=== PATIENT | male | born 1985 | race Caucasian/White ===

== ENCOUNTER 2017-03-17 15:14 | Inpatient (IN) ==
[2017-03-17] MEDS ORDERED: Ondansetron 4 MG/2 ML VIAL ONE (16:04)
[2017-03-17] MEDS ORDERED: Naloxone 0.4 MG/ML INJ IVP PRN (16:57)
[2017-03-17] MEDS ORDERED: Acetaminophen 325 MG TABLET PO PRN (16:57)
--- NOTE | 2017-03-17 17:04 | Internal Med History&Physical ---
Date of Encounter: 03/17/17 Time of Encounter: 16:40 Assessment and Plan (1) Nausea and vomiting Current visit: Yes Status: Acute Could be related to underlying sepsis versus marijuana use versus gastritis. Continue supportive care with when necessary Zofran and start Reglan. IV PPI. Check CT abdomen/pelvis for acute abnormality. Keep nothing by mouth for now. IV hydration. Qualifiers: Vomiting type: unspecified Vomiting Intractability: intractable Qualified Code(s): R11.2 - Nausea with vomiting, unspecified (2) Sepsis Current visit: Yes Status: Acute Patient presented with leukocytosis with left shift, tachycardia and mild lactic acidosis on VBG. Unclear source of infection but likely has bacteremia from IV drug use. Follow-up blood cultures. Urinalysis is not suggestive of infection. Continue aggressive IV hydration along with broad-spectrum IV antibiotics-vancomycin and Rocephin. Will check 2-D echocardiogram if blood cultures are positive. Monitor vital signs closely, at risk for severe sepsis. Qualifiers: Sepsis type: sepsis due to unspecified organism Qualified Code(s): A41.9 - Sepsis, unspecified organism (3) IV drug abuse Current visit: Yes Status: Chronic Supportive care. Urine drug screen positive for benzodiazepines and marijuana. services advisor consult. (4) Hepatitis C Current visit: Yes Status: Chronic Hepatitis C antibody positive, treatment naive, patient is not aware of viral load; ALT noted to be mildly elevated; f/up liver enzymes; Qualifiers: Viral hepatitis chronicity: chronic Hepatic coma status: without hepatic coma Qualified Code(s): B18.2 - Chronic viral hepatitis C Internal Medicine - H&P: HPI Chief complaint: Nausea, vomiting Admitted From: Emergency Dept Plans for Post Hospital Care: Home History of present illness: Mr. Peralta is a 31 year old male with history of IV drug use, who remained clean for the last 13 months and relapsed last week, presents with complaints of persistent nausea and vomiting. Patient is accompanied by his mother at bedside, also provided history. Patient has had chronic issues with gastritis, nausea and vomiting, never had an endoscopy done. He reports a 7 day history of persistent nausea and vomiting, inability to keep anything down, associated with epigastric pain. He also reports at least 40 pound weight loss in the last 4-5 weeks along with malaise, generalized weakness, subjective fever and chills. He admits to using IV heroine about a week ago and he also used Xanax this morning for symptomatic relief, which was not prescribed to him. No previous history of bacteremia or endocarditis according to the patient but he did have a MRSA wound infection secondary to IV drug use. Past Med Surg Social Fam HX - Past Medical History Medical history: asthma, GERD Psychiatric history: no psych history - Past Surgical History Surgical History: no surgical history - Social History Smoking Status: Current every day smoker Packs per day: 1 Smokeless Tobacco Status: No Alcohol use: occasionally Drug use: marijuana, IV Drug Use, other Occupational status: employed Current living situation: Home, With Family Activity Level: Independent ambulation Recent Out of Country Travel Within the Last 8 Weeks: No Exposure or Possible Exposure to Illness During Travel: No - Family History Mother History Unknown: Yes Father Living Status: Still Living Hx Family Cancer: Yes Internal Medicine - H&P: Meds Omeprazole [PriLOSEC] 40 mg PO DAILY 03/17/17 [History] 3 Allergy/AdvReac Type Severity Reaction Status Date / Time No Known Allergies Allergy Verified 03/17/17 12:13 All Systems PM: A 10-system review of systems was performed and is negative for pertinent findings except as documented above in the HPI. - Constitutional Constitutional: chills, malaise, weakness - EENT Eyes: no change in vision, no discharge, no pain, no photophobia Ears: no ear discharge, no ear pain, no tinnitus Nose, mouth and throat: no dysphagia, no nasal discharge, no neck pain, no sore throat - Cardiovascular Cardiovascular ROS IM: no chest pain, no diaphoresis, no dyspnea, no lightheadedness, no palpitations, no syncope - Respiratory Respiratory: no cough, no dyspnea, no wheezing, no excessive phlegm production - Gastrointestinal Gastrointestinal: abdominal pain, nausea, vomiting, no diarrhea - Musculoskeletal Musculoskeletal ROS IM: muscle weakness, no numbness, no tingling - Integumentary Integumentary IM: no rash, no unusual bruising - Neurological Neurological ROS: no confusion, no convulsions, no focal weakness, no numbness, no tingling, no tremor(s) - Hematologic/Lymphatic Hematologic/Lymphatic: no easy bruising - Constitutional Vitals: Temp Pulse Resp BP Pulse Ox 97.7 F 84 18 144/88 99 03/17/17 16:03 03/17/17 16:03 03/17/17 16:03 03/17/17 16:03 03/17/17 16:03 General appearance: Present: mild distress, A&O X 3, answers questions appropriately Exam: multiple scars, likely from picking, on his face and extremities - Respiratory Respiratory exam: Present: CTAB. Absent: accessory muscle use, rales, rhonchi, wheezes - Cardiovascular Cardiovascular exam: Present: RRR, +S1, +S2. Absent: diastolic murmur, gallop, rubs, systolic murmur - GI/Abdominal GI/Abdominal exam: Present: normal bowel sounds, soft, no peritoneal signs. Absent: distended, tenderness - Extremities Exam Extremities exam: Present: full ROM, warm, radial pulses palpable and symmetrical. Absent: calf tenderness, cyanotic, pedal edema - Neurological Exam Neurological exam: Present: CN II-XII intact, oriented X3, no focal deficits. Absent: pronater drift, facial droop, speech deficit - Skin Skin exam: Present: dry, intact Internal Med - H&P Results - EKG Data -: EKG Interpreted by Myself EKG shows normal: sinus rhythm Rate: tachycardia
[2017-03-17] MEDS ORDERED: Chloraseptic Spray 177 ML BOTTLE MM PRN (17:27)
[2017-03-17] MEDS: Metoclopramide 10 MG/2 ML VIAL IVP PRN (17:37)
[2017-03-17] MEDS: 0.9 % Sodium Chloride 1,000 ML IVC SCH (17:37)
[2017-03-17] MEDS ORDERED: Vancomycin 1,000 MG in D5% in Water 250 ML IVPB SCH (18:00)
[2017-03-17] MEDS: Chlorhexidine Rinse 15 ML MOUTHWASH MM SCH (19:40)
[2017-03-17] MEDS: Ondansetron 4 MG/2 ML VIAL IVP PRN (19:40)
[2017-03-17] MEDS: Vancomycin 1,000 MG in D5% in Water 250 ML IVPB SCH (23:42)
[2017-03-17] MEDS: *HR* Heparin 5,000 UNIT/ML VIAL SQ SCH (23:42)
[2017-03-18] MEDS: Metoclopramide 10 MG/2 ML VIAL IVP PRN ×3 (04:24→17:13)
[2017-03-18] MEDS: 0.9 % Sodium Chloride 1,000 ML IVC SCH (04:24)
[2017-03-18 05:11] LABS: Basophils # 0.1 K/mcL (0.0-0.2); Basophils % 0.2 %; Eosinophils % 0.1 %; Hematocrit 42.8 % (37.5-50.1); Hemoglobin 14.4 g/dL (12.9-16.9); Lymphocytes # 2.1 K/mcL (0.6-4.6); Lymphocytes % 8.9 %; Mean Corpuscular HGB Conc 33.6 g/dL (31.6-35.5); Mean Corpuscular Hemoglobin 30.7 pg (28.0-33.3); Mean Corpuscular Volume 91.3 fL (83.0-100.0); Mean Platelet Volume 9.6 fL (9.4-12.4); Monocytes # 1.4 K/mcL (0.0-1.3); Monocytes % 6.1 %; Neutrophils # 19.4 K/mcL (1.6-8.9); Platelet Count 185 K/mcL (140-400); Red Blood Count 4.69 M/mcL (4.19-5.50); Red Cell Distribution Width 11.9 % (11.5-14.5); Segmented Neutrophils % 83.7 %
[2017-03-18 05:21] LABS: BUN/Creatinine Ratio 19 (6-26); Blood Urea Nitrogen 20 mg/dL (8-26); Calcium 9.1 mg/dL (8.6-10.8); Carbon Dioxide 29 mEq/L (19-29); Chloride 101 mEq/L (98-109); Glucose 84 mg/dL (70-99); Osmolality,Calculated 288 (280-300); Potassium 3.4 mEq/L (3.5-4.5); Sodium 138 mEq/L (136-145); eGFR For African Americans > 60 (> 60); eGFR For Non-African Americans > 60 (> 60)
[2017-03-18] MEDS: Vancomycin 1,000 MG in D5% in Water 250 ML IVPB SCH ×2 (06:00→18:24)
[2017-03-18] MEDS: *HR* Heparin 5,000 UNIT/ML VIAL SQ SCH ×3 (08:09→23:35)
[2017-03-18] MEDS: Pantoprazole 40 MG VIAL IVP SCH (08:21)
[2017-03-18] MEDS: Chlorhexidine Rinse 15 ML MOUTHWASH MM SCH ×2 (08:21→19:52)
[2017-03-18] MEDS: Ondansetron 4 MG/2 ML VIAL IVP PRN ×2 (08:25→14:27)
--- NOTE | 2017-03-18 13:21 | Internal Med Progress Note ---
Date of Encounter: 03/18/17 Time of Encounter: 11:20 - Assessment and plan (1) Sepsis Current Visit: Yes Status: Suspected Assessment and plan: Resolving. Leukocytosis is improved. Lactic acid is normal. Continue IV hydration. Awaiting culture results. Leukocytosis could also be related to stress response and dehydration due to intractable nausea and vomiting. If blood cultures remain negative, consider stopping antibiotics as no other source identified so far. Qualifiers: Sepsis type: sepsis due to unspecified organism Qualified Code(s): A41.9 - Sepsis, unspecified organism (2) IV drug abuse Current Visit: Yes Status: Chronic Assessment and plan: Counseled about cessation. Elevated blood culture results. No signs of withdrawal at this time (3) Hepatitis C Current Visit: Yes Status: Chronic Assessment and plan: Recommend follow-up with infectious disease for treatment Qualifiers: Viral hepatitis chronicity: chronic Hepatic coma status: without hepatic coma Qualified Code(s): B18.2 - Chronic viral hepatitis C (4) Nausea and vomiting Current Visit: Yes Status: Resolved Assessment and plan: Intractable nausea and vomiting has now resolved. Could be due to cannabinoid hyperemesis syndrome. Qualifiers: Vomiting type: cyclical vomiting Vomiting Intractability: intractable Qualified Code(s): G43.A1 - Cyclical vomiting, intractable - Subjective Interval history: Patient feels much better today. No longer having nausea and vomiting. No abdominal pain or chest pain. No headache or dysuria. No shortness of breath. Reports some sore throat and cough. No fever - Constitutional Vitals: Temp Pulse Resp BP Pulse Ox 98.2 F 66 16 109/79 97 03/18/17 11:17 03/18/17 11:30 03/18/17 11:17 03/18/17 11:17 03/18/17 11:17 General appearance: Present: cooperative, A&O X 3, no acute distress, answers questions appropriately - Eye Eye exam: Present: EOMI, PERRL, conjuntiva pink, sclera anicteric - Respiratory Respiratory exam: Present: CTAB. Absent: accessory muscle use, rales, rhonchi, wheezes - Cardiovascular Cardiovascular exam: Present: RRR, +S1, +S2. Absent: diastolic murmur, gallop, rubs, systolic murmur - GI/Abdominal GI/Abdominal exam: Present: normal bowel sounds, soft, no peritoneal signs. Absent: distended, tenderness - Extremities Exam Extremities exam: Present: warm, radial pulses palpable and symmetrical. Absent : calf tenderness, cyanotic, pedal edema - Neurological Exam Neurological exam: Present: alert, oriented X3, no focal deficits. Absent: facial droop, speech deficit - Skin Skin exam: Present: dry, intact Internal Medicine: Result - Labs CBC & Chem 7: 03/18/17 04:55 03/18/17 04:55 Labs: Short CBC 03/18/17 Range/Units 04:55 WBC 23.1 H (4.3-11.1) K/mcL Hgb 14.4 D (12.9-16.9) g/dL Hct 42.8 (37.5-50.1) % Plt Count 185 (140-400) K/mcL Neutrophils # 19.4 H (1.6-8.9) K/mcL BMP 03/18/17 04:55 Sodium 138 Potassium 3.4 L Chloride 101 Carbon Dioxide 29 BUN 20 Creatinine 1.07 Glucose 84 Calcium 9.1 D - Impressions Impressions Abdomen/Pelvis CT 03/17/17 17:53 IMPRESSION: 1. No acute abnormality. D/ / Eddie Barfield MD / Eddie Barfield MD Interpreting Provider: Eddie Barfield MD Consult Discharge Plan - Plan Referrals: NONE,PCP [Primary Care Provider] -
[2017-03-18] MEDS: Loratadine 10 MG TABLET PO SCH (15:22)
[2017-03-18] MEDS: *HR* LORazepam 2 MG/ML VIAL IVP PRN (20:13)
[2017-03-18] MEDS ORDERED: *HR* LORazepam 2 MG/ML VIAL ONE (20:23)
[2017-03-19 05:34] LABS: Basophils % 0.3 %; Eosinophils # 0.1 K/mcL (0.0-0.6); Eosinophils % 0.9 %; Hematocrit 40.3 % (37.5-50.1); Hemoglobin 13.3 g/dL (12.9-16.9); Immature Granulocytes % 0.7 % (0-4); Lymphocytes # 2.6 K/mcL (0.6-4.6); Lymphocytes % 21.9 %; Mean Corpuscular Hemoglobin 29.6 pg (28.0-33.3); Mean Corpuscular Volume 89.8 fL (83.0-100.0); Mean Platelet Volume 9.2 fL (9.4-12.4); Monocytes # 0.8 K/mcL (0.0-1.3); Monocytes % 6.8 %; Neutrophils # 8.2 K/mcL (1.6-8.9); Platelet Count 184 K/mcL (140-400); Red Blood Count 4.49 M/mcL (4.19-5.50); Red Cell Distribution Width 11.8 % (11.5-14.5); Segmented Neutrophils % 69.4 %
[2017-03-19] MEDS ORDERED: Vancomycin 1,250 MG in D5% in Water 250 ML IVPB SCH (06:00)
[2017-03-19] MEDS: *HR* LORazepam 2 MG/ML VIAL IVP PRN (06:02)
[2017-03-19] MEDS: *HR* Heparin 5,000 UNIT/ML VIAL SQ SCH (07:53)
[2017-03-19] MEDS: Chlorhexidine Rinse 15 ML MOUTHWASH MM SCH (07:56)
[2017-03-19] MEDS: Loratadine 10 MG TABLET PO SCH (07:56)
[2017-03-19] MEDS: Pantoprazole 40 MG VIAL IVP SCH (07:56)
--- NOTE | 2017-03-19 12:43 | Electrocardiograph Report ---
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
[2017-03-19 15:06] VITALS: BP 124/80
--- NOTE | 2017-03-19 16:54 | Discharge Summary ---
Date of Encounter: 03/19/17 Time of Encounter: 16:49 - Discharge Diagnosis (1) Leukocytosis Priority: Primary Status: Acute Qualifiers: Leukocytosis type: bandemia Qualified Code(s): D72.825 - Bandemia (2) IV drug abuse Priority: Secondary Status: Chronic (3) Hepatitis C Priority: Secondary Status: Chronic Qualifiers: Viral hepatitis chronicity: chronic Hepatic coma status: without hepatic coma Qualified Code(s): B18.2 - Chronic viral hepatitis C (4) Nausea and vomiting Priority: Secondary Status: Resolved Qualifiers: Vomiting type: cyclical vomiting Vomiting Intractability: intractable Qualified Code(s): G43.A1 - Cyclical vomiting, intractable - Discharge Medications Prescriptions: Ondansetron HCl [Zofran] 4 mg PO TID PRN #10 tablet PRN Reason: Nausea Home Medications: Omeprazole [PriLOSEC] 40 mg PO DAILY 03/17/17 [History] Loratadine [Claritin] 10 mg PO DAILY tab 03/19/17 [Rx] Ondansetron HCl [Zofran] 4 mg PO TID PRN #10 tablet 03/19/17 [Rx] Allergies/Adverse Reactions: 3 Allergy/AdvReac Type Severity Reaction Status Date / Time No Known Allergies Allergy Verified 03/17/17 12:13 Procedures/tests Complete & Pending: Procedures Performed prior 72 hours Category Date Time Status CT abd pelvis w iv no oral [CT] Routine Cat Scan 03/17/17 17:53 Completed ECG 12 lead ECG [ECG] Routine Y 03/19/17 05:59 Completed Date of admission: 03/17/17 15:52 Primary care physician: PCP NONE Consults: 03/17/17 17:00 Consult to Veneer Sheet Repairer [CONS] Routine Reason for SW Consult: IVDU, may need IV antibiotics Discharging clinician: Jasiel Vera Anticipated date of discharge: 03/19/17 - Patient Status Disposition: Home, Self-Care Condition: Fair Overall status at discharge: patient is progressing back to baseline - Discharge Instructions Instructions: Leukocytosis (GEN) Follow Up With: Lani Diana CNP [Advanced Practice Nurse] - 03/25/17 2:30 pm Josué Lugo CNP [Advanced Practice Nurse] - (SENT WEB REQUEST ON 03-18-17 @ [id number]) - Diet and Activity Activity: resume usual activities as tolerated Diet: advance to your usual diet Hospital course: Mr. Peralta is a 31 year old male admitted for several day stay of nausea and vomiting due to which she was unable to eat. During admission he was hydrated and now nausea and vomiting have resolved and he is able to keep things down. His white count was elevated on admission. Admitting physician felt that this could be related to his nausea and vomiting however he was started on IV antibiotics including vancomycin. Today his white count is down and he looks fine. He denies any cough or abdominal pain dysuria urgency frequency hematuria medicated hematemesis melena or abdominal pain or any other symptoms otherwise. In absence of any source and in absence of any symptoms of fever or chills it seems very difficult to declare it is sign of infection rather than an acute phase reactant. I think the best approach would be to take him off antibiotics and see if he develop any symptoms. Told him that ideally he should stay in hospital for 5 days and if blood cultures are negative then he can be discharged however patient does not want to stay and would leave AMA. His family is with him. I explained the possible risk and complication associated with it but he does not want to take any more antibiotic therefore those will be discontinued and he will be discharged to home with instruction to follow with his family doctor and see if his blood cultures stayed negative. Patient and family are agreeable to this plan and will call the family doctor' s office. Nursing was present during this discharge as well as case management and they will follow up on this. - Time Spent with Patient Total time spent providing and/or coordinating discharge services: Greater than 30 minutes - Constitutional Vitals: Temp Pulse Resp BP Pulse Ox 98.4 F 76 20 124/80 98 03/19/17 15:05 03/19/17 15:05 03/19/17 15:05 03/19/17 15:05 03/19/17 15:05 General appearance: Present: cooperative, A&O X 3, no acute distress, answers questions appropriately - Head Head exam: Present: atraumatic, normocephalic - Eye Eye exam: Present: PERRL, conjuntiva pink, sclera anicteric Pupils: Present: PERRL - Neck Neck exam general surgery: Present: supple, trachea midline. Absent: lymphadenopathy - Respiratory Respiratory exam: Present: CTAB. Absent: accessory muscle use, rales, rhonchi, wheezes - Cardiovascular Cardiovascular exam: Present: RRR, +S1, +S2. Absent: diastolic murmur, gallop, rubs, systolic murmur - GI/Abdominal GI/Abdominal exam: Present: normal bowel sounds, soft, no peritoneal signs. Absent: distended, tenderness - Extremities Exam Extremities exam: Present: warm, radial pulses palpable and symmetrical. Absent : calf tenderness, cyanotic, pedal edema - Neurological Exam Neurological exam: Present: CN II-XII intact, oriented X3, no focal deficits. Absent: pronater drift, facial droop, speech deficit - Skin Skin exam: Present: dry, intact
[2017-03-19] MEDS ORDERED: Aminoglycoside Consult 1 EACH MC ONE (17:10)
== END 2017-03-19 17:11 | disposition home or self-care (01) | DRG 663 ==
LOC: 2NNU 15:52
PROVIDERS: ADMIT Internal Medicine; ATTEND Internal Medicine

== ENCOUNTER 2021-03-09 10:40 | Observation (INO) ==
[2021-03-09] MEDS ORDERED: Melatonin 3 MG TABLET PO PRN (12:13)
[2021-03-09] MEDS ORDERED: Mag Hydrox/Al Hydrox/Simeth 30 ML UDC PO PRN (12:13)
[2021-03-09] MEDS ORDERED: MOM Conc 10 ML UD.LIQ PO PRN (12:13)
[2021-03-09] MEDS ORDERED: Naloxone 0.4 MG/ML INJ IVP PRN (12:13)
[2021-03-09] MEDS ORDERED: Ondansetron ODT 4 MG TAB.RAPDIS SL PRN (12:13)
[2021-03-09] MEDS: Ampicillin/Sulbactam 3,000 MG in 0.9 % Sodium Chloride Mini Bag 100 ML IVPB SCH ×2 (13:30→18:37)
[2021-03-09] MEDS ORDERED: Vancomycin 1,250 MG/262.5 ML IV.SOLN IVPB SCH (14:00)
[2021-03-09 14:24] LABS: Hemoglobin 12.2 g/dL (12.9-16.9); Mean Corpuscular HGB Conc 33.9 g/dL (31.6-35.5); Mean Corpuscular Volume 91.6 fL (83.0-100.0); Mean Platelet Volume 9.5 fL (9.4-12.4); Platelet Count 172 K/mcL (140-400); Red Blood Count 3.93 M/mcL (4.19-5.50); Red Cell Distribution Width 12.5 % (11.5-14.5); White Blood Count 11.2 K/mcL (4.3-11.1)
[2021-03-09 16:06] VITALS: BP 112/64; PULSE 89; TEMP 98.2; O2SAT 99
[2021-03-09 18:48] LABS: Alanine Aminotransferase 44 Units/L (7-52); Albumin 3.6 g/dL (3.5-5.7); Albumin/Globulin Ratio 1.2 (1.1-2.2); Alkaline Phosphatase 58 Units/L (34-104); Aspartate Amino Transferase 41 Units/L (13-39); BUN/Creatinine Ratio 19 (6-26); Bilirubin,Total 0.6 mg/dL (0.3-1.0); Blood Urea Nitrogen 14 mg/dL (6-20); Calcium 9.1 mg/dL (8.6-10.3); Carbon Dioxide 23 mEq/L (23-29); Chloride 103 mEq/L (98-107); Glucose 120 mg/dL (70-105); Osmolality,Calculated 284 (280-300); Potassium 3.8 mEq/L (3.5-5.1); Sodium 136 mEq/L (136-145); Total Protein 6.6 g/dL (6.4-8.9); eGFR For African Americans > 60 (> 60); eGFR For Non-African Americans > 60 (> 60)
[2021-03-10 12:20] LABS: Acinetobacter baumannii by PCR Not Detected (Not Detect); Candida albicans by PCR Not Detected (Not Detect); Candida glabrata by PCR Not Detected (Not Detect); Candida krusei by PCR Not Detected (Not Detect); Candida parapsilosis by PCR Not Detected (Not Detect); Candida tropicalis by PCR Not Detected (Not Detect); Enterobacter cloacae Cmplx PCR Not Detected (Not Detect); Enterobacteriaceae by PCR Not Detected (Not Detect); Enterococcus by PCR Not Detected (Not Detect); Escherichia coli by PCR Not Detected (Not Detect); Klebsiella oxytoca by PCR Not Detected (Not Detect); Klebsiella pneumoniae by PCR Not Detected (Not Detect); Proteus by PCR Not Detected (Not Detect); Pseudomonas aeruginosa by PCR Not Detected (Not Detect); Serratia marcescens by PCR Not Detected (Not Detect); Staphylococcus aureus by PCR DETECTED (Not Detect); Streptococcus agalactiae(B)PCR Not Detected (Not Detect); Streptococcus by PCR Not Detected (Not Detect); Streptococcus pneumoniae PCR Not Detected (Not Detect); Streptococcus pyogenes (A) PCR Not Detected (Not Detect); mecA Methicillin-Resist Gene DETECTED (Not Detect)
== END 2021-03-09 20:15 | disposition left against medical advice (07) ==
LOC: 3BNU
PROVIDERS: ADMIT Internal Medicine; ATTEND Internal Medicine